=== PATIENT | female | born 1995 | race Caucasian/White ===

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

== ENCOUNTER → 2017-01-16 | Outpatient (CLI) | payer OTHER ==
--- NOTE | 2017-01-16 15:46 | KCIC ---
CHEST, TWO VIEWS, 01/16/2017: History: Chest pain, pneumothorax Comparison is made to a study from 11/28/2016. The heart size and pulmonary vascularity are normal. No pulmonary infiltrates are seen. There is no evidence of pleural fluid or pneumothorax. A couple of small nonspecific air-fluid levels are noted in the upper abdomen. Mild unchanged deformity of the posterolateral aspect of the right 8th rib is compatible with an old fracture. IMPRESSION: No acute cardiopulmonary abnormality is detected. Electronically signed by: Remberto Johnson MD (January 16, 2017 15:44:41)
== END | disposition home or self-care (01) ==
LOC: KCIC 15:19
PROVIDERS: ATTEND Family Medicine
DX: J93.9 Pneumothorax, unspecified (principal); R07.9 Chest pain, unspecified
CPT/HCPCS: 71020

== ENCOUNTER 2019-06-24 10:49 | Emergency (ER) | payer MEDICAID, OTHER ==
[~2019-06-24] VITALS: Ht 157.5 cm; Wt 86.2 kg
[2019-06-24] MEDS ORDERED: IV NORMAL SALINE 1000ML BAG 1,000 ML IV ONE (11:30)
[2019-06-24] MEDS ORDERED: ONDANSETRON PF 4 MG/2 ML VIAL. IV ONE (11:30)
[2019-06-24] MEDS ORDERED: MORPHINE SULFATE 10 MG/ML VIAL. IV ONE ×2 (11:30→12:45)
[2019-06-24] MEDS ORDERED: FAMOTIDINE 20 MG/2 ML VIAL IVP ONE (11:30)
[2019-06-24 11:38] LABS: BASO % 0 % (0-3); EOS % 0 % (0-3); HEMATOCRIT 41.7 % (36.0-47.0); HEMOGLOBIN 13.6 g/dL (12.0-15.5); LYMPH % 10 % (24-48); MEAN CORPUSCULAR HEMOGLOBIN 26 pg (25-35); MEAN CORPUSCULAR HGB CONC 33 g/dL (31-37); MEAN CORPUSCULAR VOLUME 78 fL (79-100); MONO # 0.5 x10^3/uL (0.0-1.1); MONO % 6 % (0-9); NEUT # 7.6 x10^3/uL (1.8-7.7); NEUT % 83 % (31-73); PLATELET COUNT 197 x10^3/uL (140-400); RED BLOOD COUNT 5.34 x10^6/uL (3.50-5.40); RED CELL DISTRIBUTION WIDTH 16.9 % (11.5-14.5); WHITE BLOOD COUNT 9.2 x10^3/uL (4.0-11.0)
[2019-06-24 11:44] LABS: BILIRUBIN,URINE SMALL (NEG); CLARITY,URINE CLOUDY; COLOR,URINE YELLOW; NITRITE,URINE NEGATIVE (NEG); PROTEIN,URINE NEGATIVE (NEG-TRACE); UROBILINOGEN,URINE 0.2 mg/dL (0.2 mg/dL)
[2019-06-24] MEDS ORDERED: IOHEXOL 300 MG/ML 100ML VIAL. IV ONE (11:45)
[2019-06-24 11:48] LABS: CREATININE 0.8 mg/dL (0.6-1.0); GFR 90.5; POTASSIUM 3.7 mmol/L (3.5-5.1)
[2019-06-24 11:54] LABS: ALBUMIN 3.7 g/dL (3.4-5.0); TOTAL BILIRUBIN 0.4 mg/dL (0.2-1.0); TOTAL PROTEIN 7.5 g/dL (6.4-8.2)
[2019-06-24 12:07] LABS: BACTERIA,URINE MANY /HPF (0-FEW); SQUAMOUS EPITHELIAL CELL,UR MANY /LPF
[2019-06-24 12:08] LABS: WBC,URINE 20-40 /HPF (0-4)
--- NOTE | 2019-06-24 12:39 | RAD ---
CT ABD PELV W/ IV CONTRST ONLY History: Abdominal pain. Gastric bypass. Technique: After the administration of intravenous contrast, CT imaging was performed of the abdomen and pelvis. Multiplanar images are reviewed. Contrast: 75 mL Omnipaque 300 IV contrast. Exposure: One or more of the following individualized dose reduction techniques were utilized for this examination: 1. Automated exposure control 2. Adjustment of the mA and/or kV according to patient size 3. Use of iterative reconstruction technique. Comparison: None Findings: Lower chest: No consolidation or pleural effusion. Abdomen and pelvis: Focal fatty infiltration along the falciform ligament. Otherwise, the liver is unremarkable. The spleen, adrenal glands, pancreas and gallbladder are unremarkable. Mild left hydronephrosis. Left perinephric stranding. Delayed enhancement of the left kidney compared to the right. No right hydronephrosis. No renal, ureteral or urinary bladder calculi. Decompressed urinary bladder. Normal appendix. No evidence of bowel obstruction. Postoperative changes gastric bypass. Small right lower quadrant mesenteric lymph nodes, likely reactive. Small pelvic free fluid. Bones: Chronic right posterior rib fracture. Impression: 1. Mild left hydronephrosis with perinephric stranding and delayed enhancement, may represent recently passed stone or infection. 2. Small mesenteric lymph nodes, likely reactive. 3. Postop changes gastric bypass. No evidence of bowel obstruction. Electronically signed by: Jake Garcia DO (06/24/2019 12:36 PM) [facility]
[2019-06-24] MEDS ORDERED: CIPR500T94 PO (13:45)
[2019-06-24] MEDS ORDERED: OXYC1TAB15 PO (13:45)
[2019-06-24] MEDS ORDERED: ONDA4TAB12 PO (13:45)
--- NOTE | 2019-06-24 13:45 | PHYS DOC ---
Past Medical History Past Medical History: Anxiety, Depression, Hypothyroid, Other Additional Past Medical Histor: allergies, panic attacks, SCOLOSIS, PCOS Past Surgical History: Other Additional Past Surgical Histo: dental, GASTRIC BYPASS Alcohol Use: None Drug Use: None Adult General Chief Complaint Chief Complaint: ABDOMINAL PAIN HPI HPI Patient is a 23 year old female who presents to the ED today complaining of 9 out of 10 left upper quadrant abdominal pain radiating to her back, symptoms began this morning with nausea but no vomiting. Patient denies any exacerbating or relieving factors. She states she had lap band surgery 6 weeks ago at [facility]. Review of Systems Review of Systems Constitutional: Denies fever or chills [] Eyes: Denies change in visual acuity, redness, or eye pain [] HENT: Denies nasal congestion or sore throat [] Respiratory: Denies cough or shortness of breath [] Cardiovascular: No additional information not addressed in HPI [] GI: Reports left upper quadrant abdominal pain with nausea, denies vomiting, bloody stools or diarrhea [] : Denies dysuria or hematuria [] Musculoskeletal: Denies back pain or joint pain [] Integument: Denies rash or skin lesions [] Neurologic: Denies headache, focal weakness or sensory changes [] All other systems were reviewed and found to be within normal limits, except as documented in this note. Current Medications Current Medications Current Medications Medications (Trade) Dose Ordered Sig/Marzena Start Time Stop Time Status Last Admin Dose Admin Famotidine (Pepcid Vial) 20 mg 1X ONCE 06/24/19 11:30 06/24/19 11:31 DC 06/24/19 11:51 20 MG Iohexol (Omnipaque 300 Mg/ml) 75 ml 1X ONCE 06/24/19 11:45 06/24/19 11:46 DC 06/24/19 12:08 75 ML Morphine Sulfate (Morphine Sulfate) 5 mg 1X ONCE 06/24/19 12:45 06/24/19 12:46 DC 06/24/19 13:07 5 MG Ondansetron HCl (Zofran) 4 mg 1X ONCE 06/24/19 11:30 06/24/19 11:31 DC 06/24/19 11:51 4 MG Sodium Chloride 1,000 ml @ 1,000 mls/hr 1X ONCE 06/24/19 11:30 06/24/19 12:29 DC 06/24/19 11:47 1,000 MLS/HR Allergies Allergies Allergies Coded Allergies Type Severity Reaction Last Updated Verified Penicillins Allergy Intermediate 12/24/14 No amoxicillin Allergy Intermediate Hives 07/08/15 Yes Physical Exam Physical Exam Constitutional: Well developed, well nourished, no acute distress, non-toxic appearance. [] HENT: Normocephalic, atraumatic, bilateral external ears normal, oropharynx moist, no oral exudates, nose normal. [] Eyes: PERRLA, EOMI, conjunctiva normal, no discharge. [] Neck: Normal range of motion, no tenderness, supple, no stridor. [] Cardiovascular:Heart rate regular rhythm, no murmur [] Lungs & Thorax: Bilateral breath sounds clear to auscultation [] Abdomen: Laparoscopic surgical incisions noted on the abdomen consistent with recent lap band surgery. No signs of infection. Bowel sounds normal, tenderness diffusely on the left upper quadrant, no masses, no pulsatile masses. [] Skin: Warm, dry, no erythema, no rash. [] Back: No tenderness, slight left CVA tenderness. [] Extremities: No tenderness, no cyanosis, no clubbing, ROM intact, no edema. [] Neurologic: Alert and oriented X 3, normal motor function, normal sensory function, no focal deficits noted. [] Psychologic: Affect normal, judgement normal, mood normal. [] Current Patient Data Vital Signs Vital Signs Date Time Temp Pulse Resp B/P (MAP) Pulse Ox O2 Delivery O2 Flow Rate FiO2 06/24/19 13:07 18 06/24/19 11:27 98.5 82 115/73 (87) 96 Room Air 98.5 Lab Values Laboratory Tests Test 06/24/19 11:06 06/24/19 11:22 06/24/19 11:27 Urine Collection Type Unknown Urine Color Yellow Urine Clarity Cloudy Urine pH 6.0 Urine Specific [place] >=1.030 Urine Protein Negative mg/dL (NEG-TRACE) Urine Glucose (UA) Negative mg/dL (NEG) Urine Ketones (Stick) >=80 mg/dL (NEG) Urine Blood Moderate (NEG) Urine Nitrite Negative (NEG) Urine Bilirubin Small (NEG) Urine Urobilinogen Dipstick 0.2 mg/dL (0.2 mg/dL) Urine Leukocyte Esterase Moderate (NEG) Urine RBC 11-20 /HPF (0-2) Urine WBC 20-40 /HPF (0-4) Urine Squamous Epithelial Cells Many /LPF Urine Bacteria Many /HPF (0-FEW) Urine Mucus Mod /LPF White Blood Count 9.2 x10^3/uL (4.0-11.0) Red Blood Count 5.34 x10^6/uL (3.50-5.40) Hemoglobin 13.6 g/dL (12.0-15.5) Hematocrit 41.7 % (36.0-47.0) Mean Corpuscular Volume 78 fL (79-100) L Mean Corpuscular Hemoglobin 26 pg (25-35) Mean Corpuscular Hemoglobin Concent 33 g/dL (31-37) Red Cell Distribution Width 16.9 % (11.5-14.5) H Platelet Count 197 x10^3/uL (140-400) Neutrophils (%) (Auto) 83 % (31-73) H Lymphocytes (%) (Auto) 10 % (24-48) L Monocytes (%) (Auto) 6 % (0-9) Eosinophils (%) (Auto) 0 % (0-3) Basophils (%) (Auto) 0 % (0-3) Neutrophils # (Auto) 7.6 x10^3/uL (1.8-7.7) Lymphocytes # (Auto) 1.0 x10^3/uL (1.0-4.8) Monocytes # (Auto) 0.5 x10^3/uL (0.0-1.1) Eosinophils # (Auto) 0.0 x10^3/uL (0.0-0.7) Basophils # (Auto) 0.0 x10^3/uL (0.0-0.2) Sodium Level 142 mmol/L (136-145) Potassium Level 3.7 mmol/L (3.5-5.1) Chloride Level 105 mmol/L (98-107) Carbon Dioxide Level 25 mmol/L (21-32) Anion Gap 12 (6-14) Blood Urea Nitrogen 10 mg/dL (7-20) Creatinine 0.8 mg/dL (0.6-1.0) Estimated GFR (Cockcroft-Gault) 90.5 BUN/Creatinine Ratio 13 (6-20) Glucose Level 98 mg/dL (70-99) Calcium Level 9.0 mg/dL (8.5-10.1) Total Bilirubin 0.4 mg/dL (0.2-1.0) Aspartate Amino Transferase (AST) 14 U/L (15-37) L Alanine Aminotransferase (ALT) 16 U/L (14-59) Alkaline Phosphatase 79 U/L (46-116) Total Protein 7.5 g/dL (6.4-8.2) Albumin 3.7 g/dL (3.4-5.0) Albumin/Globulin Ratio 1.0 (1.0-1.7) Lipase 80 U/L (73-393) POC Urine HCG, Qualitative Hcg negative (Negative) Laboratory Tests 06/24/19 11:22 Laboratory Tests 06/24/19 11:22 EKG EKG [] Radiology/Procedures Radiology/Procedures []PROCEDURE: CT ABD PELV W/ IV CONTRST ONLY CT ABD PELV W/ IV CONTRST ONLY History: Abdominal pain. Gastric bypass. Technique: After the administration of intravenous contrast, CT imaging was performed of the abdomen and pelvis. Multiplanar images are reviewed. Contrast: 75 mL Omnipaque 300 IV contrast. Exposure: One or more of the following individualized dose reduction techniques were utilized for this examination: 1. Automated exposure control 2. Adjustment of the mA and/or kV according to patient size 3. Use of iterative reconstruction technique. Comparison: None Findings: Lower chest: No consolidation or pleural effusion. Abdomen and pelvis: Focal fatty infiltration along the falciform ligament. Otherwise, the liver is unremarkable. The spleen, adrenal glands, pancreas and gallbladder are unremarkable. Mild left hydronephrosis. Left perinephric stranding. Delayed enhancement of the left kidney compared to the right. No right hydronephrosis. No renal, ureteral or urinary bladder calculi. Decompressed urinary bladder. Normal appendix. No evidence of bowel obstruction. Postoperative changes gastric bypass. Small right lower quadrant mesenteric lymph nodes, likely reactive. Small pelvic free fluid. Bones: Chronic right posterior rib fracture. Impression: 1. Mild left hydronephrosis with perinephric stranding and delayed enhancement, may represent recently passed stone or infection. 2. Small mesenteric lymph nodes, likely reactive. 3. Postop changes gastric bypass. No evidence of bowel obstruction. Electronically signed by: Jake Cardenas DO (06/24/2019 12:36 PM) [facility] DICTATED and SIGNED BY: JAKE CARDENAS DO DATE: 06/24/19 1236 Course & Med Decision Making Course & Med Decision Making Pertinent Labs and Imaging studies reviewed. (See chart for details) This is a 23-year-old female patient presenting to the ED today with left upper quadrant abdominal pain radiating to the flank region since this morning as well as nausea. Negative urine hCG, urine noted for infection. CBC with normal WBC, CMP-no acute findings. CT of the abdomen and pelvic was noted for Mild left hydronephrosis with perinephric stranding and delayed enhancement, may represent recently passed stone or infection.Small mesenteric lymph nodes, likely reactive.Postop changes gastric bypass. No evidence of bowel obstruction. Highly suspect this patient has pyelonephritis, she denies any previous history of kidney stones. We discharged her home with Cipro and oxycodone for pain. Follow-up with PCP next week Dragon Disclaimer Dragon Disclaimer This electronic medical record was generated, in whole or in part, using a voice recognition dictation system. Departure Departure Impression: Primary Impression: Pyelonephritis Disposition: 01 HOME, SELF-CARE Condition: STABLE Referrals: EZEQUIEL LUCIANO MD (PCP) Follow-up with your doctor next week Patient Instructions: Pyelonephritis, Adult Additional Instructions: You were seen in the emergency room for abdominal pain, your ct scan was concerning for pyelonephritis/kidney infection or a possible passed kidney stone. We will put you on antibiotics to clear the infection. Ensure you complete them. Follow-up with your primary care doctor as well as your Dr. at [facility] in the next 7 days. Scripts Ondansetron (ONDANSETRON ODT) 4 Mg Tab.rapdis 1 TAB PO PRN Q6-8HRS, #16 TAB Prov: [employer] 06/24/19 Oxycodone/Apap 5-325 (PERCOCET 5-325 MG TABLET ) 1 Each Tablet 1 TAB PO PRN Q6HRS PRN for PAIN, #12 TAB 0 Refills Prov: MUTUNGADENNIS [employer]HEMI[employer] TECHNOLOGIST 06/24/19 Ciprofloxacin Hcl (CIPRO) 500 Mg Tablet 1 TAB PO BID for 7 Days, #14 TAB 0 Refills Prov: M[employer]ENN[employer]HEMI[employer] TECHNOLOGIST 06/24/19 DENNIS DEWITT APRN Jun 24, 2019 13:45
[2019-06-24 13:47] VITALS: BP 96/64
== END 2019-06-24 14:08 | disposition home or self-care (01) ==
LOC: ER 10:49
DX: N12 Tubulo-interstitial nephritis, not specified as acute or chronic (principal); F41.9 Anxiety disorder, unspecified; F32.9 Major depressive disorder, single episode, unspecified; E03.9 Hypothyroidism, unspecified; Z88.0 Allergy status to penicillin; Z88.1 Allergy status to other antibiotic agents
CPT/HCPCS: 36415; 74177; 80053; 81001; 81025; 83690; 85025; 96374; 96375; 96376; 99285; J2270; J2405; J3490; J7030; Q9967

== ENCOUNTER 2020-03-11 22:13 | Emergency (ER) | payer BC, MEDICAID ==
[~2020-03-11] VITALS: Ht 154.9 cm; Wt 61.4 kg
[~2020-03-11 22:13] MED LIST changes: +CIPR500T94 PO; +ONDA4TAB12 PO; +OXYC1TAB15 PO
--- NOTE | 2020-03-11 23:16 | PHYS DOC ---
Past Medical History Past Medical History: Anxiety, Depression, Hypothyroid, Other Additional Past Medical Histor: allergies, panic attacks, SCOLOSIS, PCOS Past Surgical History: Other Additional Past Surgical Histo: dental, GASTRIC BYPASS Smoking Status: Former Smoker Alcohol Use: None Drug Use: None General Adult EDM: Chief Complaint: ABDOMINAL PAIN HPI: HPI: Patient is a 24 year old female who presents for evaluation of upper and right upper abdominal discomfort. Onset of symptoms over the past 24 hours. Furthe rmore patient had a recent sore throat and is on Z-Joshua. Patient states he is having increasing generalized weakness. Patient is status post gastric bypass surgery about 7 months ago at [facility]. Patient has some nausea but no vomiting and no diarrhea. Patient denies any black, bloody or tarry stools Review of Systems: Review of Systems: Constitutional: Denies fever or chills. [] Eyes: Denies change in visual acuity. [] HENT: Denies nasal congestion or sore throat. [] Respiratory: Denies cough or shortness of breath. [] Cardiovascular: Denies chest pain or edema. [] GI: has abdominal pain with nausea, but no vomiting, bloody stools or diarrhea. [] : Denies dysuria. [] Musculoskeletal: Denies back pain or joint pain. [] Integument: Denies rash. [] Neurologic: Denies headache, focal weakness or sensory changes. [] Endocrine: Denies polyuria or polydipsia. [] Lymphatic: Denies swollen glands. [] Psychiatric: Denies depression or anxiety. [] Heart Score: Risk Factors: Risk Factors: DM, Current or recent (<one month) smoker, HTN, HLP, family history of CAD, obesity. Risk Scores: Score 0 - 3: 2.5% MACE over next 6 weeks - Discharge Home Score 4 - 6: 20.3% MACE over next 6 weeks - Admit for Clinical Observation Score 7 - 10: 72.7% MACE over next 6 weeks - Early Invasive Strategies Current Medications: Current Medications Medications (Trade) Dose Ordered Sig/Marzena Start Time Stop Time Status Last Admin Dose Admin Famotidine (Pepcid Vial) 20 mg 1X ONCE 03/11/20 23:30 03/11/20 23:31 Ondansetron HCl (Zofran) 4 mg 1X ONCE 03/11/20 23:30 03/11/20 23:31 Sodium Chloride 1,000 ml @ 1,000 mls/hr Q1H 03/11/20 23:30 03/12/20 00:29 Allergies: Allergies: Allergies Coded Allergies Type Severity Reaction Last Updated Verified Penicillins Allergy Intermediate 12/24/14 No amoxicillin Allergy Intermediate Hives 07/08/15 Yes Physical Exam: PE: Constitutional: Well developed, well nourished, mild acute distress, non-toxic appearance. [] HENT: Normocephalic, atraumatic, bilateral external ears normal, oropharynx moist, no oral exudates, nose normal. [] Eyes: PERRL, EOMI, conjunctiva normal, no discharge. [] Neck: Normal range of motion, no tenderness, supple. [] Cardiovascular:Heart rate regular rhythm, no murmur [] Lungs & Thorax: Bilateral breath sounds clear to auscultation [] Abdomen: Bowel sounds normal, soft, tender mild and upper right side abdominal pain, no masses. [] Skin: Warm, dry, no erythema. [] Back: No tenderness, no CVA tenderness. [] Extremities: No tenderness, no cyanosis, ROM intact, no edema. [] Neurologic: Alert and oriented, normal motor function, normal sensory function, no focal deficits noted. [] Psychologic: Affect normal, judgement normal, mood normal. [] Current Patient Data: Labs: Laboratory Tests Test 03/11/20 22:38 POC Urine HCG, Qualitative Hcg negative (Negative) Vital Signs: Laboratory Tests Test 03/11/20 22:17 03/11/20 22:38 03/11/20 22:52 Urine Collection Type Unknown Urine Color Yellow Urine Clarity Clear Urine pH 6.5 Urine Specific [place] 1.025 Urine Protein Negative mg/dL Urine Glucose (UA) Negative mg/dL Urine Ketones (Stick) Negative mg/dL Urine Blood Negative Urine Nitrite Negative Urine Bilirubin Negative Urine Urobilinogen Dipstick 1.0 mg/dL Urine Leukocyte Esterase Negative Urine RBC 0 /HPF Urine WBC Rare /HPF Urine Squamous Epithelial Cells Many /LPF Urine Bacteria Many /HPF Urine Mucus Marked /LPF Bedside Urine HCG, Qualitative Hcg negative White Blood Count 8.0 x10^3/uL Red Blood Count 5.38 x10^6/uL Hemoglobin 14.5 g/dL Hematocrit 43.5 % Mean Corpuscular Volume 81 fL Mean Corpuscular Hemoglobin 27 pg Mean Corpuscular Hemoglobin Concent 33 g/dL Red Cell Distribution Width 14.5 % Platelet Count 231 x10^3/uL Neutrophils (%) (Auto) 69 % Lymphocytes (%) (Auto) 23 % Monocytes (%) (Auto) 6 % Eosinophils (%) (Auto) 1 % Basophils (%) (Auto) 1 % Neutrophils # (Auto) 5.6 x10^3/uL Lymphocytes # (Auto) 1.9 x10^3/uL Monocytes # (Auto) 0.5 x10^3/uL Eosinophils # (Auto) 0.1 x10^3/uL Basophils # (Auto) 0.0 x10^3/uL Sodium Level 137 mmol/L Potassium Level 3.8 mmol/L Chloride Level 100 mmol/L Carbon Dioxide Level 28 mmol/L Anion Gap 9 Blood Urea Nitrogen 16 mg/dL Creatinine 0.8 mg/dL Estimated GFR (Cockcroft-Gault) 89.7 BUN/Creatinine Ratio 20 Glucose Level 88 mg/dL Calcium Level 8.7 mg/dL Total Bilirubin 0.4 mg/dL Aspartate Amino Transf (AST/SGOT) 11 U/L Alanine Aminotransferase (ALT/SGPT) 22 U/L Alkaline Phosphatase 86 U/L Total Protein 7.9 g/dL Albumin 4.1 g/dL Albumin/Globulin Ratio 1.1 Lipase 89 U/L Current Medications Medications (Trade) Dose Ordered Sig/Marzena Route PRN Reason Start Time Stop Time Status Last Admin Dose Admin Sodium Chloride 1,000 ml @ 1,000 mls/hr Q1H IV 03/11/20 23:30 03/12/20 00:29 DC 03/11/20 23:48 Ondansetron HCl (Zofran) 4 mg 1X ONCE IVP 03/11/20 23:30 03/11/20 23:31 DC 03/11/20 23:48 Famotidine (Pepcid Vial) 20 mg 1X ONCE IVP 03/11/20 23:30 03/11/20 23:31 DC 03/11/20 23:48 Iohexol (Omnipaque 300 Mg/ml) 75 ml 1X ONCE IV 03/12/20 01:00 03/12/20 01:01 DC 03/12/20 01:35 Info (CONTRAST GIVEN -- Rx MONITORING) 1 each PRN DAILY PRN MC SEE COMMENTS 03/12/20 00:45 03/14/20 00:44 Iohexol (Omnipaque 240 Mg/ml) 30 ml 1X ONCE PO 03/12/20 02:00 03/12/20 02:01 DC 03/12/20 01:41 Info (CONTRAST GIVEN -- Rx MONITORING) 1 each PRN DAILY PRN MC SEE COMMENTS 03/12/20 01:30 03/14/20 01:29 EKG: EKG: EKG showed normal sinus rhythm, rate 75, essentially normal EKG, not STEMI read at 23:15 PM [] Radiology/Procedures: Radiology/Procedures: [facility] [address] [place], [place] [id number] IMAGING REPORT Signed PATIENT: CATHIE BURLESON FACCOUNT: [id number] : 1995 LOCATION: ER AGE: 24 SEX: F EXAM STATUS: REG ER ORD. PHYSICIAN: JENAE BLUE DO REASON: abd pain RUQ, history of gastric bypass PROCEDURE: CT ABD PELV W/ORAL&IV CONTRAST CT scan of the abdomen and pelvis with contrast 03/12/2020 CLINICAL HISTORY: Right upper quadrant abdominal pain. TECHNIQUE: After the oral and intravenous administration of contrast, contiguous, 5 mm axial sections were obtained through abdomen and pelvis. 75 cc of Omnipaque 350 100 were administered intravenously during this examination. One or more of the following individualized dose reduction techniques were utilized for this study: 1. Automated exposure control. 2. Adjustment of the mA and/or kV according to patient size. 3. Use of iterative reconstruction technique. FINDINGS: Comparison study is dated 06/16/2019. Images through the lung bases are within normal limits. The liver, spleen, pancreas, adrenal glands and kidneys are within normal limits. The abdominal aorta tapers normally. The gallbladder is well-distended. No free fluid or free air is within abdomen. The patient is post gastric bypass type procedure. There is no evidence of bowel obstruction. The appendix is partially visualized and is within normal limits. Images through the pelvis demonstrate the urinary bladder distended with urine. No adnexal mass is seen. No free fluid is noted. Very mild S-shaped curvature of the thoracolumbar spine is seen. IMPRESSION: No acute abnormality is seen. Electronically signed by: Rolf Stewart MD (03/12/2020 2:22 AM) [id number] DICTATED and SIGNED BY: ROLF STEWART MD DATE: 03/12/20221 [] Course & Med Decision Making: Course & Med Decision Making Pertinent Labs and Imaging studies reviewed. (See chart for details) [] Dragon Disclaimer: Dragon Disclaimer: This electronic medical record was generated, in whole or in part, using a voice recognition dictation system. 0015 stable, feeling somewhat better at this time. CT scan abdomen pelvis with oral and IV contrast ordered for further assessment 0400 stable, patient been reassessed multiple times. Orthostatic blood pressures were obtained and were not significantly positive. She is able to ambulate without difficulty. She has been consistently running a low blood pressure but is currently 98/54. Patient will follow closely with her doctor. She is given a copy of her CT results. Her lab work and urinalysis were essentially normal. I suspect that she passed out due to a previously low blood pressure. There is no criteria to admit her at this time however she is awake alert and nontoxic Departure Departure Impression: Primary Impression: Upper abdominal pain Additional Impressions: History of gastric bypass Vaso vagal episode Disposition: HOME, SELF-CARE Condition: STABLE Referrals: EZEQUIEL LUCIANO MD (PCP) Patient Instructions: Abdominal Pain (Nonspecific), Syncope Additional Instructions: Your CT scan abdomen pelvis as well as lab work and urinalysis were normal. Call and see your doctor regarding your abdominal pain. You may need to restart a medication such as Pepcid. You consistently ran intermittent episodes of low blood pressure. I suspect that contributed why you passed out earlier this evening Justicifation of Admission Dx: Justifications for Admission: Justification of Admission Dx: N/A JENAE BLUE DO Mar 11, 2020 23:16
[2020-03-11 23:23] LABS: BASO % 1 % (0-3); EOS # 0.1 x10^3/uL (0.0-0.7); EOS % 1 % (0-3); HEMATOCRIT 43.5 % (36.0-47.0); HEMOGLOBIN 14.5 g/dL (12.0-15.5); LYMPH # 1.9 x10^3/uL (1.0-4.8); LYMPH % 23 % (24-48); MEAN CORPUSCULAR HEMOGLOBIN 27 pg (25-35); MEAN CORPUSCULAR HGB CONC 33 g/dL (31-37); MEAN CORPUSCULAR VOLUME 81 fL (79-100); MONO # 0.5 x10^3/uL (0.0-1.1); MONO % 6 % (0-9); NEUT # 5.6 x10^3/uL (1.8-7.7); NEUT % 69 % (31-73); PLATELET COUNT 231 x10^3/uL (140-400); RED BLOOD COUNT 5.38 x10^6/uL (3.50-5.40); RED CELL DISTRIBUTION WIDTH 14.5 % (11.5-14.5)
[2020-03-11 23:23] LABS: BILIRUBIN,URINE NEGATIVE (NEG); CLARITY,URINE CLEAR; COLOR,URINE YELLOW; NITRITE,URINE NEGATIVE (NEG); PH,URINE 6.5 (<5.0-8.0); PROTEIN,URINE NEGATIVE (NEG-TRACE)
[2020-03-11 23:29] LABS: BACTERIA,URINE MANY /HPF (0-FEW); SQUAMOUS EPITHELIAL CELL,UR MANY /LPF
[2020-03-11 23:30] LABS: RBC,URINE 0 /HPF (0-2)
[2020-03-11] MEDS ORDERED: IV NORMAL SALINE 1000ML BAG 1,000 ML IV SCH (23:30)
[2020-03-11] MEDS ORDERED: FAMOTIDINE 20 MG/2 ML VIAL IVP ONE (23:30)
[2020-03-11] MEDS ORDERED: ONDANSETRON PF 4 MG/2 ML VIAL. IVP ONE (23:30)
[2020-03-11 23:31] LABS: WBC,URINE RARE /HPF (0-4)
[2020-03-11 23:37] LABS: CALCIUM 8.7 mg/dL (8.5-10.1); CREATININE 0.8 mg/dL (0.6-1.0); GFR 89.7; POTASSIUM 3.8 mmol/L (3.5-5.1)
[2020-03-11 23:52] LABS: ALBUMIN 4.1 g/dL (3.4-5.0); ALBUMIN/GLOBULIN RATIO 1.1 (1.0-1.7); TOTAL BILIRUBIN 0.4 mg/dL (0.2-1.0); TOTAL PROTEIN 7.9 g/dL (6.4-8.2)
[2020-03-12] MEDS ORDERED: CONTRAST GIVEN. MC PRN ×2 (00:45→01:30)
[2020-03-12] MEDS ORDERED: IOHEXOL 300 MG/ML 100ML VIAL. IV ONE (01:00)
[2020-03-12] MEDS ORDERED: IOHEXOL 240 MG/ML 50ML VIAL. PO ONE (02:00)
--- NOTE | 2020-03-12 02:25 | RAD ---
CT scan of the abdomen and pelvis with contrast 03/12/2020 CLINICAL HISTORY: Right upper quadrant abdominal pain. TECHNIQUE: After the oral and intravenous administration of contrast, contiguous, 5 mm axial sections were obtained through abdomen and pelvis. 75 cc of Omnipaque 350 100 were administered intravenously during this examination. One or more of the following individualized dose reduction techniques were utilized for this study: 1. Automated exposure control. 2. Adjustment of the mA and/or kV according to patient size. 3. Use of iterative reconstruction technique. FINDINGS: Comparison study is dated 06/16/2019. Images through the lung bases are within normal limits. The liver, spleen, pancreas, adrenal glands and kidneys are within normal limits. The abdominal aorta tapers normally. The gallbladder is well-distended. No free fluid or free air is within abdomen. The patient is post gastric bypass type procedure. There is no evidence of bowel obstruction. The appendix is partially visualized and is within normal limits. Images through the pelvis demonstrate the urinary bladder distended with urine. No adnexal mass is seen. No free fluid is noted. Very mild S-shaped curvature of the thoracolumbar spine is seen. IMPRESSION: No acute abnormality is seen. Electronically signed by: Rolf Stewart MD (03/12/2020 2:22 AM) [id number]
[2020-03-12 04:10] VITALS: BP 95/66
--- NOTE | 2020-03-12 06:17 | EKG ---
[facility] [address] [place] [address] Test Date: 2020-03-11 Test Time: 23:12:26 Pat Name: CATHIE BURLESON Department: Room: Gender: F Curriculum Developer: : 1995 Requested By: JENAE BLUE Order Number: [id number] Reading MD: Measurements Intervals [place] Rate: 75 P: 48 MN: 182 QRS: 42 QRSD: 74 T: 31 QT: 400 QTc: 449 Interpretive Statements SINUS RHYTHM QRS(T) CONTOUR ABNORMALITY CONSIDER ANTEROLATERAL MYOCARDIAL DAMAGE POSSIBLY ABNORMAL ECG RI6.01 No previous ECG available for comparison
== END 2020-03-12 04:13 | disposition home or self-care (01) ==
LOC: ER 22:13
DX: R10.11 Right upper quadrant pain (principal); R53.1 Weakness; R55 Syncope and collapse; R11.0 Nausea; F41.9 Anxiety disorder, unspecified; F32.9 Major depressive disorder, single episode, unspecified; E03.9 Hypothyroidism, unspecified; Z98.890 Other specified postprocedural states; Z88.1 Allergy status to other antibiotic agents; Z79.899 Other long term (current) drug therapy
CPT/HCPCS: 36415; 74177; 80053; 81001; 81025; 83690; 85025; 87086; 93005; 96361; 96374; 96375; 99285; J2405; J3490; J7030; Q9966; Q9967